=== PATIENT | female | born 1980 | race African-American/Black ===

== ENCOUNTER 2019-02-22 18:28 | Emergency (ER) | payer OTHER ==
[~2019-02-22] VITALS: Ht 167.6 cm; Wt 61.0 kg
[2019-02-22] MEDS ORDERED: IBUPROFEN 600MG TABLET PO ONE (23:15)
[2019-02-23 00:03] VITALS: BP 110/75
== END 2019-02-23 00:05 | disposition home or self-care (01) ==
LOC: ER 18:28
DX: S39.012A Strain of muscle, fascia and tendon of lower back, initial encounter (principal); M54.2 Cervicalgia; M54.6 Pain in thoracic spine; V49.88XA Car occupant (driver) (passenger) injured in other specified transport accidents, initial encounter; Y93.89 Activity, other specified; Y92.89 Other specified places as the place of occurrence of the external cause; Y99.8 Other external cause status
CPT/HCPCS: 81025; 99283

== ENCOUNTER 2019-02-25 14:37 | Emergency (ER) | payer OTHER ==
[~2019-02-25] VITALS: Ht 167.6 cm; Wt 60.0 kg
[2019-02-25] MEDS ORDERED: KETOROLAC 60MG/2ML VIAL IM ONE (18:45)
[2019-02-25 19:30] VITALS: BP 120/74
== END 2019-02-25 19:30 | disposition home or self-care (01) ==
LOC: ER 14:46
DX: M62.830 Muscle spasm of back (principal); V49.49XA Driver injured in collision with other motor vehicles in traffic accident, initial encounter; Y93.89 Activity, other specified; Y92.89 Other specified places as the place of occurrence of the external cause; Y99.8 Other external cause status
CPT/HCPCS: 96372; 99283; J1885